=== PATIENT | female | born 2000 | race Two or more races ===

== ENCOUNTER 2024-06-28 17:15 | Emergency (ER) | payer BC, OTHER ==
[~2024-06-28] VITALS: Ht 162.6 cm; Wt 59.0 kg
--- NOTE | 2024-06-28 19:31 | ED.PDOC ---
History of Present Illness(SKN HPI Comments This is a 23-year-old female presents to the ED status post dog bites. Patient states her house dogs were fighting and she tried to break up the fight and in the process her left wrist and left hand were bitten. Patient states dog bites to left wrist and hand, bleeding controlled noted full-thickness laceration. She states she dropped the dog off at the lb they are getting rid of the dog she notes all vaccines are up-to-date at this time. She denies other bites, or any other known injury. Tdap not known on last immunization. Chief Complaint: Animal Bite Time Seen by MD: 17:56 Primary Care Provider: RADHA History of Present Illness: Nurses Notes, Medications, Allergies Allergies: Coded Allergies: NO KNOWN ALLERGIES (Unverified , 06/28/24) Home Meds Active Scripts Amoxicillin & Pot Clavulanate (AUGMENTIN TABLET) 875 Mg Tb, 875 MG PO BID for 7 Days, #14 TAB Prov:MAYELIN ROSAS JEMMA 06/28/24 Information Source: Patient Mode of Arrival: Ambulatory Past Medical History PAST MEDICAL HISTORY: Denies Surgical History: Denies all surgeries PATIENT CASE COORDINATOR History: No Pertinent PATIENT CASE COORDINATOR History Constitutional: denies: chills, diaphoresis, fatigue, fever, malaise, sweats, weakness, others EENTM: denies: blurred vision, double vision, ear bleeding, ear discharge, ear drainage, ear pain, ear ringing, eye pain, eye redness, hearing loss, mouth pain, mouth swelling, nasal discharge, nose bleeding, nose congestion, nose pain, photophobia, tearing, throat pain, throat swelling, voice changes, others Respiratory: denies: cough, hemoptysis, orthopnea, SOB at rest, shortness of breath, SOB with excertion, stridor, wheezing, others Cardiovascular: denies: chest pain, dizzy spells, diaphoresis, Dyspnea on exertion, edema, irregular heart beat, left arm pain, lightheadedness, palpitations, PND, syncope, others Gastrointestinal: denies: abdomen distended, abdominal pain, blood streaked bowels, constipated, diarrhea, dysphagia, difficulty swallowing, hematemesis, melena, nausea, poor appetite, poor fluid intake, rectal bleeding, rectal pain, vomiting, others Genitourinary: denies: abnormal vagina bleeding, burning, dyspareunia, dysuria, flank pain, frequency, hematuria, incontinence, pain, , vagina discharge, urgency, others Neurological: denies: dizziness, fainting, headache, left sided numbness, left sided weakness, numbness, paresthesia, pre-existing deficit, right sided numbness, right sided weakness, seizure, speech problems, tingling, tremors, weakness, others Musculoskeletal: denies: back pain, gout, joint pain, joint swelling, muscle pain, muscle stiffness, neck pain, others Integumetry: reports: laceration, wounds (Puncture wounds to left dorsum he hand in left medial wrist. Bleeding controlled.); denies: bruises, change in color, change in hair/nails, dryness, lesions, lumps, rash, others Allergic/Immunocompromised: denies: Difficulty Healing, Frequent Infections, Hives, Itching, others Hematologic/Lymphatic: denies: anemia, blood clots, easy bleeding, easy bruising, swollen glands, others Endocrine: denies: excessive hunger, excessive sweating, excessive thirst, excessive urination, flushing, intolerance to cold, intolerance to heat, unexplained weight gain, unexplained weight loss, others Psychiatric: denies: anxiety, bipolar disorder, depression, hopeless, panic disorder, schizophrenia, sleepless, suicidal, others Physical Exam General Appearance: No Apparent Distress, Normal HEENT: Pharynx Normal Neck: Full Range of Motion, Non-Tender Respiratory: Lungs Clear, No Respiratory Distress, Normal Breath Sounds Cardiovascular: No Murmur, Normal Peripheral Pulses, Regular Rate/Rhythm Breast Exam: Deferred Gastrointestinal: Non Tender, Soft Genitalia: Deferred Pelvic: Deferred Rectal: Deferred Extremities: Normal range of motion Musculoskeletal : Apperance: Normal Neurologic: Alert, shopping centre manager II-XII nml as Tested, No Motor Deficits, Normal Affect, Normal Mood, No Sensory Deficits Cerebellar Function: Normal Reflexes: Normal Skin: Dry, Normal Color, Warm, Wounds (Puncture wounds noted to left hand dorsum aspect and left wrist medial aspect bleeding controlled no noted drainage) Lymphatic: No Adenopathy Was a procedure done? Was a procedure done?: Yes Sedation Sedation?: No Informed consent obtained: Yes Laceration Repair : Location LEFT HAND DORSUM ASPECT. LEFT WRIST MEDIAL ASPECT. Length LEFT HAND LAC 3 CM. WRIST LACK 2 CM Anesthetic: Lidocaine, Without epi Laceration Repair Prep: Saline, Betadine, by Irrigation Laceration Repair Wound Comple: epidermis/dermis repair Laceration Repair: Number of sutures (6) Informed consent obtained: Yes Risks, benefits, and alternati: Yes Notes LEFT HAND LAC 4 SUTURES. LEFT WRIST LAC TWO SUTURE Differential Diagnosis (INTG) Differential Diagnosis: Fracture, Puncture Wound X-Ray, Labs, Meds, VS Vital Signs Date Time Temp Pulse Resp B/P (MAP) Pulse Ox O2 Delivery O2 Flow Rate FiO2 06/28/24 19:47 98.4 80 19 124/76 (92) 98 98.4 06/28/24 19:47 80 19 98 Room Air 06/28/24 17:30 98.1 90 16 141/90 (107) 97 Current Medications Medications (Trade) Dose Ordered Sig/Anay Route Start Time Stop Time Status Last Admin Diphtheria/ Tetanus/Acell Pertussis (Boostrix T-Dap) 0.5 ml ONCE ONCE IM 06/28/24 19:45 06/28/24 19:46 DC 06/28/24 20:06 Time of 1ST Reevaluation: 21:45 Reevaluation 1ST: Improved Patient Education/Counseling: Diagnosis, Treatment, Prognosis, Need For Follow Up Family Education/Counseling: Diagnosis, Treatment, Prognosis, Need For Follow Up Departure 1 Departure Time of Disposition: 21:52 Impression: Primary Impression: Dog bite Qualified Codes: W54.0XXA - Bitten by dog, initial encounter Disposition: HOME / SELF CARE / HOMELESS Condition: Stable e-Prescriptions Amoxicillin & Pot Clavulanate (AUGMENTIN TABLET) 875 Mg Tb 875 MG PO BID for 7 Days, #14 TAB Prov: MAYELIN ROSAS 06/28/24 Discharged With: Relative (Sibling) Critical Care Note Critical Care Time?: No Stability Stability form required: MAYELIN Whelan Jun 28, 2024 19:31
[2024-06-28] MEDS: LIDOCAINE 1% HCL (LOCAL ANESTH.) INJ 20ML MDV ID ONE (19:45)
[2024-06-28 19:47] VITALS: BP 124/76; PULSE 80; RESP 19; TEMP 98.4; O2SAT 98
[2024-06-28] MEDS: TETANUS-DIPTH-ACEL PERTUSSIS 0.5ML SYR Tdap IM ONE (20:06)
[2024-06-28] MEDS ORDERED: AUG875T PO (21:56)
== END 2024-06-28 22:42 | disposition home or self-care (01) ==
LOC: ER 17:15
DX: S61.552A Open bite of left wrist, initial encounter (principal); W54.0XXA Bitten by dog, initial encounter; Y93.89 Activity, other specified; Y92.89 Other specified places as the place of occurrence of the external cause; Y99.8 Other external cause status
CPT/HCPCS: 12002; 90471; 90715; 99283; J2003